=== PATIENT | female | born 1980 | race Caucasian/White ===

== ENCOUNTER 2017-03-04 14:47 | Emergency (ER) | payer SELFPAY, OTHER ==
[2017-03-04 15:22] LABS: URINE HCG POC HCG NEGATIVE (Negative)
[2017-03-04 16:17] LABS: BILIRUBIN,URINE NEGATIVE (NEG); GLUCOSE,URINE NEGATIVE (NEG); NITRITE,URINE NEGATIVE (NEG); PROTEIN,URINE NEGATIVE (NEG-TRACE)
[2017-03-04] MEDS: IBUPROFEN 600 MG TABLET. PO (16:49)
[2017-03-04 16:50] LABS: BACTERIA,URINE FEW /HPF (0-FEW); RBC,URINE 0 /HPF (0-2); SQUAMOUS EPITHELIAL CELL,UR MOD /LPF
[2017-03-08 16:12] LABS: CHLAMYDIA PROBE Negative (Negative)
== END 2017-03-04 18:46 | disposition home or self-care (01) ==
LOC: ER 14:47
DX: R10.2 Pelvic and perineal pain (principal); F17.200 Nicotine dependence, unspecified, uncomplicated; Z90.49 Acquired absence of other specified parts of digestive tract; Z98.51 Tubal ligation status
CPT/HCPCS: 76830; 76856; 81001; 81025; 87491; 87591; 99285-25; Q0111

== ENCOUNTER → 2018-08-10 | Outpatient (CLI) | payer BC ==
[2017-03-04 18:20] VITALS: BP 110/68
--- NOTE | 2018-08-10 14:39 | KCIC ---
EXAM: PELVIC ULTRASOUND. HISTORY: Pelvic pain. COMPARISON: 03/04/2017. FINDINGS: Sonographic evaluation of the pelvis was performed transabdominally and transvaginally. The uterus is anteverted and measures 9.8 x 4.8 x 5.6 cm. The endometrial stripe measures 10 mm. No masses are identified. There is no significant free fluid. A scar is noted. Multiple cysts are noted along the endocervical canal. The largest conglomerate measures 1.1 x 0.7 cm. The right ovary measures 4.2 x 2.5 x 2.4 cm. A complicated cyst or dominant follicle measures 2.6 x 2.2 x 2.1 cm. The left ovary measures 3.3 x 1.5 x 1.4 cm. There is normal Doppler flow bilaterally. There are no suspicious lesions. Prominent veins are noted in the left adnexa. IMPRESSION: 1. A complicated cyst or dominant follicle in the right ovary measures 2.6 cm and is most likely physiologic. Follow-up could be performed in 3 months only if there is persistent concern. 2. Prominent veins in the left adnexa are usually an incidental finding. Correlate clinically to exclude pelvic venous congestion syndrome. Electronically signed by: Shruthi Putnam MD (08/10/2018 2:35 PM) [facility]
--- NOTE | 2018-08-10 15:05 | KCIC ---
Bilateral digital screening mammograms with 3-D tomosynthesis: Reason for examination: Routine screening. New baseline. No previous examinations available for comparison. Bilateral mammograms in CC and oblique projections were obtained with 2-D imaging and 3-D tomosynthesis imaging on a Siemens Inspiration unit and reviewed on the workstation. Interpretation was made with the benefit of CAD. The skin and nipples show no abnormalities. No abnormal axillary lymph nodes are seen. The breast parenchyma shows scattered fatty and fibroglandular density. (Breast density: Category B.) There appears to be an area of architectural distortion at the 11:00 to 12:00 C position of the left breast. Further evaluation with coned compression views and ultrasound is recommended. There also appear to be small nodular parenchymal densities located at approximately the 1:00 A position in the left breast and in the 8:00 B position of the left breast. These are small and well-circumscribed and may represent cysts but recommend further evaluation with ultrasound. There are no other dominant masses, suspicious calcifications or architectural distortion. Impression: Architectural distortion at the 11:30-12:00 position posteriorly in the left breast. Recommend further evaluation with coned compression views in CC and lateral projections and with ultrasound. Small circumscribed nodules at the 1:00 A position and 8:00 B position which are subcentimeter in size and may represent cysts. Recommend further evaluation with ultrasound. BI-RADS Category 0: Incomplete: Need additional imaging evaluation. "Our facility is accredited by the [employer] Mammography Program." This patient's information has been entered into a reminder system for the patient to be notified with the results of her examination and a target date for the next mammogram. Electronically signed by: Ariadne Maya MD (08/10/2018 3:02 PM) [facility]
== END | disposition home or self-care (01) ==
LOC: KCIC US 11:57
PROVIDERS: ATTEND Nurse Practitioner Family
DX: Z12.31 Encounter for screening mammogram for malignant neoplasm of breast (principal); N63.24 Unspecified lump in the left breast, lower inner quadrant; R10.2 Pelvic and perineal pain
CPT/HCPCS: 76830; 76856; 77063; 77067

== ENCOUNTER → 2018-08-21 | Outpatient (CLI) | payer BC ==
[2017-03-04 18:20] VITALS: BP 110/68
--- NOTE | 2018-08-21 17:00 | KCIC ---
Left breast diagnostic digital mammograms: Reason for examination: Asymmetric parenchyma posteriorly and small nodules anteriorly in the left on screening mammogram. Comparison is made to mammographic exam dated 08/10/2018. Coned compression views were obtained in CC and lateral projections. With these additional views, there parenchymal asymmetry posterior superiorly appears represent superimposed tissues. No definite nodules are identified anteriorly on the additional views. IMPRESSION: No suspicious abnormalities with the additional views. Ultrasound to follow. BI-RADS Category 0: Incomplete: Need additional imaging evaluation. Left breast ultrasound: Ultrasound examination of the left breast was performed in the areas of mammographic concern and at the left axilla. There is some dense fibroglandular tissue at the 11:00 position corresponding with the area of asymmetry. No discrete cystic or solid nodules are seen. No abnormal appearing lymph nodes are seen in the axilla. IMPRESSION: No suspicious abnormality seen in the left breast sonographically. Recommend 6 month follow-up with mammograms. BI-RADS Category 3: Probably Benign. "Our facility is accredited by the [employer] Mammography Program." This patient's information has been entered into a reminder system for the patient to be notified with the results of her examination and a target date for the next mammogram. Electronically signed by: Ariadne Maya MD (08/21/2018 4:56 PM) [id number]
== END | disposition home or self-care (01) ==
LOC: KCIC MAMMO 12:52
PROVIDERS: ATTEND Nurse Practitioner Family
DX: N63.20 Unspecified lump in the left breast, unspecified quadrant (principal); N64.89 Other specified disorders of breast
CPT/HCPCS: 76641; 77065

== ENCOUNTER → 2018-10-06 | Outpatient (CLI) | payer BC ==
[2017-03-04 18:20] VITALS: BP 110/68
[~2018-10-06] VITALS: Ht 154.9 cm; Wt 65.1 kg
[~2018-10-06] MED LIST: HYDR-2761 PO
[2018-10-06 12:55] LABS: BASO # 0.1 x10^3/uL (0.0-0.2); BASO % 1 % (0-3); EOS # 0.2 x10^3/uL (0.0-0.7); EOS % 2 % (0-3); HEMATOCRIT 44.9 % (36.0-47.0); HEMOGLOBIN 15.4 g/dL (12.0-15.5); LYMPH # 2.9 x10^3/uL (1.0-4.8); LYMPH % 30 % (24-48); MEAN CORPUSCULAR HEMOGLOBIN 33 pg (25-35); MEAN CORPUSCULAR HGB CONC 34 g/dL (31-37); MEAN CORPUSCULAR VOLUME 95 fL (79-100); MONO # 0.6 x10^3/uL (0.0-1.1); MONO % 6 % (0-9); NEUT % 61 % (31-73); PLATELET COUNT 318 x10^3/uL (140-400); RED BLOOD COUNT 4.72 x10^6/uL (3.50-5.40); RED CELL DISTRIBUTION WIDTH 14.1 % (11.5-14.5); WHITE BLOOD COUNT 9.8 x10^3/uL (4.0-11.0)
[2018-10-06 12:58] LABS: BILIRUBIN,URINE NEGATIVE (NEG); CLARITY,URINE CLEAR; COLOR,URINE YELLOW; NITRITE,URINE NEGATIVE (NEG); PROTEIN,URINE NEGATIVE (NEG-TRACE); UROBILINOGEN,URINE 0.2 mg/dL (0.2 mg/dL)
[2018-10-06 13:15] LABS: ALBUMIN 3.7 g/dL (3.4-5.0); CALCIUM 8.4 mg/dL (8.5-10.1); CREATININE 0.7 mg/dL (0.6-1.0); GFR 94.2; POTASSIUM 3.4 mmol/L (3.5-5.1); TOTAL BILIRUBIN 0.4 mg/dL (0.2-1.0); TOTAL PROTEIN 7.4 g/dL (6.4-8.2)
[2018-10-06 13:16] LABS: BACTERIA,URINE FEW /HPF (0-FEW); RBC,URINE 0 /HPF (0-2); SQUAMOUS EPITHELIAL CELL,UR MOD /LPF; WBC,URINE 0 /HPF (0-4)
== END | disposition home or self-care (01) ==
LOC: SURGPAT 12:28
PROVIDERS: ATTEND Obstetrics & Gynecology
DX: Z01.818 Encounter for other preprocedural examination (principal)
CPT/HCPCS: 36415; 80053; 81001; 85025

== ENCOUNTER 2018-10-12 06:38 | Observation (INO) | payer BC ==
[~2018-10-12] VITALS: Ht 154.9 cm; Wt 64.9 kg
[2018-10-12] MEDS ORDERED: PROPOFOL 20 ML IV ONE (06:53)
[2018-10-12] MEDS ORDERED: DEXAMETHASONE SOD PHOS 4 MG/ML VIAL ONE (06:53)
[2018-10-12] MEDS ORDERED: ONDANSETRON PF 4 MG/2 ML VIAL. ONE (06:53)
[2018-10-12] MEDS ORDERED: MORPHINE SULFATE 2 MG/ML VIAL. IV PRN ×2 (07:00→11:00)
[2018-10-12] MEDS ORDERED: ONDANSETRON PF 4 MG/2 ML VIAL. IV PRN ×2 (07:00→11:00)
[2018-10-12] MEDS ORDERED: PROCHLORPERAZINE 10 MG/2 ML VIAL. IV PRN (07:00)
[2018-10-12] MEDS ORDERED: LIDOCAINE 1% PF 2 ML VIAL. ID PRN (07:00)
[2018-10-12] MEDS ORDERED: IV RINGERS,LACTATED 1000ML 1,000 ML IV SCH (07:00)
[2018-10-12] MEDS ORDERED: fentaNYL PF VIAL 100 MCG/2 ML VIAL IV PRN (07:00)
[2018-10-12] MEDS ORDERED: ESTROGENS, CONJ VAGINAL CREAM 30GM TUBE. ONE (07:23)
[2018-10-12] MEDS ORDERED: INDIGOTINDISULFONATE SODIUM 40 MG/5 ML AMPUL. ONE (07:24)
[2018-10-12] MEDS ORDERED: fentaNYL PF VIAL 100 MCG/2 ML VIAL ONE ×2 (08:28→10:56)
[2018-10-12] MEDS ORDERED: ROCURONIUM 50 MG/5 ML VIAL. ONE (08:28)
[2018-10-12] MEDS ORDERED: BUPIVACAINE-EPI 0.25%-1:200000 MPF 30 ML VIAL. INJ ONE (09:00)
[2018-10-12] MEDS ORDERED: MAGNESIUM HYDROXIDE 2,400 MG/30 ML ORAL.SUSP. PO PRN (11:00)
[2018-10-12] MEDS ORDERED: diphenhydrAMINE 50 MG/ML VIAL IV PRN (11:00)
[2018-10-12] MEDS ORDERED: SIMETHICONE 80 MG TAB.CHEW PO PRN (11:00)
[2018-10-12] MEDS ORDERED: HYDROcodone/APAP 5/325MG 1 TAB TABLET PO PRN (11:00)
[2018-10-12] MEDS ORDERED: LACTULOSE 20 GM/30 ML SOLUTION. PO PRN (11:00)
[2018-10-12] MEDS ORDERED: ZOLPIDEM 5 MG TABLET. PO PRN (11:00)
[2018-10-12] MEDS ORDERED: CALCIUM CARBONATE 500 MG TAB.CHEW PO PRN (11:00)
[2018-10-12] MEDS ORDERED: 0.9 % SODIUM CHLORIDE 10 ML DISP.SYRIN. IV PRN (11:00)
[2018-10-12] MEDS ORDERED: diphenhydrAMINE HCL 25 MG CAPSULE PO PRN (11:00)
[2018-10-12] MEDS ORDERED: NALOXONE 0.4 MG/ML VIAL. IV PRN (11:00)
[2018-10-12] MEDS ORDERED: MAG HYDROX/ALUMINUM HYD/SIMETH 30 ML ORAL.SUSP PO PRN (11:00)
[2018-10-12] MEDS: fentaNYL PF VIAL 100 MCG/2 ML VIAL IV PRN ×2 (11:02→11:24)
--- NOTE | 2018-10-12 11:09 | PDOC ---
BRIEF OPERATIVE NOTE Date: Oct 12, 2018 Pre-Op Diagnosis pelvic pain, menorrhagia, dysmenorrhea Post-Op Diagnosis same Procedure Performed LAVH/BSO Surgeon Dr. Nicole Scott Rotary Drill Operator Helper PREMA Serna Anesthesiologist Dr. Caban Anesthesia Type: General Blood Loss 50cc IV Fluid 600cc Urine Output 100cc clear via cook Specimens Obtained cervix, uterus, bilateral tubes and ovaries Findings mild omental adhesions to anteiror abdominal wall in front of umbilical port, mild bladder adhesions, enlarged left ovary, left sided bowel adhesions Complications none Operative Note [id number] NICOLE SCOTT MD Oct 12, 2018 11:09
[2018-10-12] MEDS ORDERED: HYDROmorphone 2 MG/ML VIAL ONE (11:16)
[2018-10-12] MEDS: KETOROLAC 30 MG/ML VIAL. IV PRN (11:19)
[2018-10-12] MEDS: HYDROmorphone 2 MG/ML VIAL IV PRN ×3 (11:25→11:54)
[2018-10-12] MEDS ORDERED: ESTRADIOL WEEKLY 0.1 MG PATCH. TD SCH (11:30)
--- NOTE | 2018-10-12 12:05 | OP ---
DATE OF SURGERY: 10/12/2018 PREOPERATIVE DIAGNOSES: Pelvic pain, dysmenorrhea and menorrhagia. POSTOPERATIVE DIAGNOSES: Pelvic pain, dysmenorrhea and menorrhagia. PROCEDURES: Laparoscopic-assisted vaginal hysterectomy, bilateral salpingo-oophorectomy. SURGEON: Marah Scott MD MAP EDITOR: ANGIE Sterling ANESTHESIOLOGIST: Dr. Groves. ANESTHESIA: General. ESTIMATED BLOOD LOSS: 50 mL. URINE OUTPUT: 100 mL clear via Calvillo catheter. INTRAVENOUS FLUIDS: 600 mL of crystalloid. SPECIMEN REMOVED: Cervix, uterus, bilateral tubes and ovaries. FINDINGS: Mild omental adhesions to the anterior abdominal wall in front of the umbilical port. Mild bladder adhesions, probably from prior section and large left ovary and left-sided bowel adhesions. Normal right tube and ovary and normal appearing uterus. COMPLICATIONS: None. DESCRIPTION OF PROCEDURE: This patient was taken to the operating room where general anesthesia was placed. The patient was placed in the dorsal lithotomy position in [facility]. The patient's abdomen and vagina were prepped and draped in the normal sterile fashion and a Calvillo catheter had been inserted under sterile technique. Upon my arrival, a timeout was performed. Once everyone agreed, a bivalve speculum was placed in the patient's vagina. A single-tooth tenaculum was used to grasp the anterior lip of the cervix. A 10 mL of 0.25% Marcaine with epinephrine was used to circumferentially inject around the cervix for both hemodissection and hemostatic purposes later. Once this was done, the Valtchev uterine manipulator was placed through the endocervical os, locked on the single tooth tenaculum and the bivalve speculum was then removed. Top gloves were discarded and changed. Attention was then turned to the abdomen where an infraumbilical skin incision was made with the scalpel over an existing scar. A curved Fawn was used to dissect through the subcuticular layer to the fascia. The 5 mm Visiport was used to directly enter the abdominal cavity. Opening patient pressure was 4 mmHg. Carbon dioxide gas was used to then appropriately insufflate the abdominal cavity to maintain a pressure of 15 mmHg. Upon entry, it appeared to be clear; however, I could see omentum right in front of me. I was able to get a left lower quadrant port in, making sure it was clear on the inside, transilluminating the abdominal wall, finding an area clear of any vasculature, making an incision and putting it under direct visualization using 4-5 mL of air to insufflate that cuff. I moved the camera to the lateral port to check the umbilical port. It was indeed clear, but there was a small omental adhesion you could see in front of it, so that is what I was seeing. That was able to be taken down under direct visualization with the LigaSure easily, cauterizing and cutting it and releasing it. It was just a piece of omentum right in front of the port, which cleared visualization and then the right lower quadrant port was placed as well, finding an area clear on the inside transilluminating the abdominal wall, finding an area clear of any vasculature, making a small incision and placing the port in under direct visualization. Once that was done, 4-5 mL of air was used to insufflate the cuff and the camera was moved back to the midline and the procedure was started. I did take down some of the bowel adhesions as well on the left side to get the IP ligament good, not a lot but a little, elevating that finding the ureter, coursing low in the pelvis, staying high on the IP ligament, cauterizing and cutting it with the LigaSure, going over under the tube and ovary, and then crossing the left round ligament as well. This was done on the right side, elevating the right tube and ovary, finding the ureter coursing low, staying high on the IP taking the tube and ovary per patient request, crossing the right round ligament. The bladder flap was then created sharply, taking down adhesions first and then pushing the uterus in cephalad for some tension, elevating the bladder and using the monopolar hook as a knife to cut across and peeling it down good. Once that was peel down, the uterine vessels were obtained on both sides and then going down through the cardinal and broad ligaments to the level of the uterosacrals. Once this was done and the uterus was completely free and blanching and mobile, everything was removed from the abdomen and attention was turned vaginally. The single tooth and Valtchev were removed. A weighted speculum was placed in the patient's vagina. Thyroid Leif clamps were placed on the anterior and posterior lips of the cervix respectively. A scalpel was used to make a circumferential incision in the cervix. An open Ray-Clary 4 x 4 was used to gently push up the anterior bladder peritoneum and the anterior cul-de-sac was digitally and bluntly entered. The 4 x 4 was removed and the curved Wellesley was placed in the anterior cul-de-sac. The cervix was elevated and the posterior cul-de-sac was sharply entered with curved Viramontes scissors. A #0 Vicryl stitch was used to secure the posterior peritoneum here to the vaginal cuff. It was tied, tagged with a curved Fawn clamp and the needle was cut and passed off. The short weighted speculum was removed and replaced with the long weighted Arturo speculum in the posterior cul-de-sac. Curved Doe clamps x 2 were placed on the patient's left uterosacral ligament where they were doubly clamped with curved Heaneys, cut with Viramontes scissors and suture ligated x 2 with 0 Vicryl, taking the second one through the vaginal cuff securing uterosacral ligament to the vaginal cuff, tying it, tagging it with a straight Fawn clamp and cutting the needle off. This was done exactly the same on the patient's right side. Double clamping the uterosacrals with curved Doe's, cutting with Viramontes scissors, suture ligating x 2 with 0 Vicryl, taking the second one through the vaginal cuff, tagging it with a straight Fawn clamp and cutting and passing the needle off. The remaining pedicle on both sides were delineated with the curved mixture and the vaginal LigaSure was used to cauterize and cut these on both sides. Once this was done, the cervix, uterus, bilateral tubes and ovaries were delivered in total and passed off for permanent pathology. A sponge stick was used to examine the pedicles. Once hemostasis was assured, some clots were cleared from the posterior cul-de-sac, but there was no active bleeding from any of the pedicles. A long Allis was used to grasp the anterior bladder peritoneum and it was examined as well. The long Arturo speculum was removed and replaced with the short weighted vaginal speculum. A 2-0 Vicryl was taken through the anterior bladder peritoneum, left uterosacral ligament, posterior peritoneum and right uterosacral ligament, thus closing the peritoneum in a pursestring like fashion. Once this was done, the right and left uterosacral tags were clipped. A full length 2-0 Vicryl was used to close the cuff in an anterior to posterior running locked fashion and the posterior cuff tag was tied to it and cut. The vagina was examined with a sponge stick and the vaginal cuff was completely hemostatic, so all instruments were removed. Sponge, lap and needle counts had been correct x 2 by OR personnel before going above. At this point, all instruments were removed vaginally and attention was turned back above for a second look. The patient was placed back in Trendelenburg. Gas was reinsufflated. Copious irrigation revealed hemostasis. Tisseel was placed over the pedicles with excellent results. The right and left pericolic gutters were clear. The appendix was normal. The edge of the liver was normal. At this point, the right and left lower quadrant ports were deflated on the cuff and they were removed under direct visualization. They were hemostatic. I continued to watch the cuff while the gas went down and it remained hemostatic. So, the cuff was deflated on the umbilical port. It was removed as well. All three port sites were closed with 4-0 nylon at the skin and injected with 10 mL of local. The patient was awakened from anesthesia, extubated and brought to recovery room in stable condition. MARAH SCOTT MD DR: CHRISTY/andres JOB#: [id number] / [id number]
[2018-10-12] MEDS: oxyCODONE/APAP 5/325 1 TAB TABLET PO PRN ×3 (12:50→21:03)
[2018-10-12 13:00] VITALS: BP 105/54
[2018-10-12 13:30] VITALS: BP 97/63
[2018-10-12 14:00] VITALS: BP 100/49
[2018-10-12 14:30] VITALS: BP 101/51
[2018-10-12 17:00] VITALS: BP 99/59
[2018-10-12 21:07] VITALS: BP 107/59
[2018-10-13] MEDS: oxyCODONE/APAP 5/325 1 TAB TABLET PO PRN ×2 (02:54→07:55)
[2018-10-13 02:55] VITALS: BP 110/60
[2018-10-13] MEDS: KETOROLAC 30 MG/ML VIAL. IV PRN (07:54)
[2018-10-13] MEDS: BISACODYL 10 MG SUPP.RECT. PR PRN ×2 (07:56→08:01)
[2018-10-13 08:21] LABS: CREATININE 0.7 mg/dL (0.6-1.0); GFR 94.2; POTASSIUM 3.4 mmol/L (3.5-5.1)
--- NOTE | 2018-10-13 08:44 | PDOC ---
SURGICAL PROGRESS NOTE Subjective Doing well. Ambulating well, voiding without catheter, scant spotting only with wiping, tolerating pO pain meds. Wanting to go home today Vital Signs Vital Signs Date Time Temp Pulse Resp B/P (MAP) Pulse Ox O2 Delivery O2 Flow Rate FiO2 10/13/18 07:56 97 8.0 10/13/18 02:55 98.0 74 110/60 (77) 98.0 10/13/18 02:54 18 10/12/18 21:07 Room Air I&O Intake and Output 10/13/18 06:59 Intake Total 3360 ml Output Total 210 ml Balance 3150 ml Intake Oral 1960 ml IV Total 1400 ml Output Urine Total 160 ml Estimated Blood Loss 50 ml # Voids 6 PATIENT HAS A PAZ: No General: Alert, Oriented X3, Cooperative, No acute distress HEENT: Atraumatic Heart: Regular rate Abdomen: Soft, No tenderness, No masses, Other (all port sites c/d/i) Extremities: No clubbing, No cyanosis, No edema, No tenderness/swelling Skin: No rashes, No breakdown, No significant lesion Neuro: Normal gait, Normal speech Psych/Mental Status: Mental status NL, Mood NL Labs Laboratory Tests Test 10/12/18 06:51 10/13/18 06:25 Bedside Urine HCG, Qualitative Hcg negative (Negative) Hematocrit 38.1 % (36.0-47.0) Sodium Level 141 mmol/L (136-145) Potassium Level 3.4 mmol/L (3.5-5.1) Chloride Level 107 mmol/L (98-107) Carbon Dioxide Level 24 mmol/L (21-32) Anion Gap 10 (6-14) Blood Urea Nitrogen 8 mg/dL (7-20) Creatinine 0.7 mg/dL (0.6-1.0) Estimated GFR (Cockcroft-Gault) 94.2 Glucose Level 98 mg/dL (70-99) Calcium Level 8.0 mg/dL (8.5-10.1) Laboratory Tests Test 10/13/18 06:25 Hematocrit 38.1 % (36.0-47.0) Sodium Level 141 mmol/L (136-145) Potassium Level 3.4 mmol/L (3.5-5.1) Chloride Level 107 mmol/L (98-107) Carbon Dioxide Level 24 mmol/L (21-32) Anion Gap 10 (6-14) Blood Urea Nitrogen 8 mg/dL (7-20) Creatinine 0.7 mg/dL (0.6-1.0) Estimated GFR (Cockcroft-Gault) 94.2 Glucose Level 98 mg/dL (70-99) Calcium Level 8.0 mg/dL (8.5-10.1) Cardiovascular: No pertinent hx GI: No pertinent hx Heme/Onc: No pertinent hx Rheumatologic: No pertinent hx Infectious disease: No pertinent hx ENT: No pertinent hx Assessment/Plan POD#1 s/p LAVH/BSO Routine PO care d/c to home later today NPV x 6 weeks Light/limited activity x 2 weeks keep scheduled follow up appt with me in one week call or return sooner if has any questions or concerns not limited to but including pain unrelieved with pain meds, increased or unexplained vaginal bleeding or T>100.4 ok for OTC ibuprofen as needed already has oxycodone at home MARAH ODONNELL MD Oct 13, 2018 08:44
--- NOTE | 2018-10-13 08:50 | PDOC3 ---
Discharge Summary Visit Information Date of Admission: Oct 12, 2018 Date of Discharge: Oct 13, 2018 Brief Hospital Course Allergies Allergies Coded Allergies Type Severity Reaction Last Updated Verified No Known Drug Allergies 03/10/15 No Vital Signs Vital Signs Date Time Temp Pulse Resp B/P (MAP) Pulse Ox O2 Delivery O2 Flow Rate FiO2 10/13/18 07:56 97 8.0 10/13/18 02:55 98.0 74 110/60 (77) 98.0 10/13/18 02:54 18 10/12/18 21:07 Room Air Lab Results Laboratory Tests Test 10/12/18 06:51 10/13/18 06:25 Bedside Urine HCG, Qualitative Hcg negative (Negative) Hematocrit 38.1 % (36.0-47.0) Sodium Level 141 mmol/L (136-145) Potassium Level 3.4 mmol/L (3.5-5.1) Chloride Level 107 mmol/L (98-107) Carbon Dioxide Level 24 mmol/L (21-32) Anion Gap 10 (6-14) Blood Urea Nitrogen 8 mg/dL (7-20) Creatinine 0.7 mg/dL (0.6-1.0) Estimated GFR (Cockcroft-Gault) 94.2 Glucose Level 98 mg/dL (70-99) Calcium Level 8.0 mg/dL (8.5-10.1) Laboratory Tests Test 10/13/18 06:25 Hematocrit 38.1 % (36.0-47.0) Sodium Level 141 mmol/L (136-145) Potassium Level 3.4 mmol/L (3.5-5.1) Chloride Level 107 mmol/L (98-107) Carbon Dioxide Level 24 mmol/L (21-32) Anion Gap 10 (6-14) Blood Urea Nitrogen 8 mg/dL (7-20) Creatinine 0.7 mg/dL (0.6-1.0) Estimated GFR (Cockcroft-Gault) 94.2 Glucose Level 98 mg/dL (70-99) Calcium Level 8.0 mg/dL (8.5-10.1) Brief Hospital Course Ms. Arroyo is a 38 old female who presented with pelvic pain, menorrhagia, dysmenorrhea. She underwent and LAVH/BSO yesterday without complications. She has had an unremarkable postoperative course with AFVSS, ambulating well, tolerating po, scant vag spotting with wiping only. She will be discharged to home later today Discharge Information Condition at Discharge: Stable Follow Up: Weeks Disposition/Orders: D/C to Home Scheduled Info (No Known Medications Prior To Admisstion) Each, 1 EACH MC DAILY for NONE, (Reported) Entered as Reported by: FIORDALIZA IVAN on 10/06/18 5001 Last Action: HELD on 10/12/18837 by MARAH ODONNELL Patient Instructions Patient Instructions POD#1 s/p LAVH/BSO Routine PO care d/c to home later today NPV x 6 weeks Light/limited activity x 2 weeks keep scheduled follow up appt with me in one week call or return sooner if has any questions or concerns not limited to but including pain unrelieved with pain meds, increased or unexplained vaginal bleeding or T>100.4 ok for OTC ibuprofen as needed already has oxycodone at home MARAH ODONNELL MD Oct 13, 2018 08:49
[2018-10-13 09:14] VITALS: BP 105/66
[2018-10-13] MEDS ORDERED: HYDR-2761 PO (09:17)
--- NOTE | 2018-10-16 08:07 | PATHOLOGY ---
[facility] Accession Number: [id number] . 01 Material submitted: . uterus - CERVIX, UTERUS, BILATERAL FALLOPIAN TUBES AND OVARIES . 01 Clinical history: . Female pelvic pain, menorrhagia, dysmenorrhea. . 02 Diagnosis: Uterus and attached bilateral fallopian tubes and ovaries, laparoscopic-assisted vaginal hysterectomy with bilateral salpingo-oophorectomy: - Adenomyosis, uterine corpus, subbasilar region, with mild myometrial hypertrophy (uterine weight 112 grams). - Mild chronic cervicitis with focal squamous metaplasia. - Proliferative endometrium. - Congestion and cystic Walthard rests of bilateral fallopian tubes. - Cystic follicles of bilateral ovaries. (CHAPISM:giovany; 10/13/2018) MBR/10/16/2018 . 02 Comment: There is no atypia or evidence of malignancy. (CHAPISM:giovany; 10/13/2018) . 02 Electronically signed: . Miky Wood MD, Pathologist NPI- [id number] . 01 Gross description: . Received in formalin labeled "Marycruz Arroyo, cervix, uterus, bilateral fallopian tubes and ovaries" is a hysterectomy specimen with attached fallopian tubes and ovaries. The uterus weighs 112 g and measures 9.8 cm from fundus to cervix, 5.5 cm from cornu to cornu, and 4.8 cm from anterior to posterior. The serosa is pink-shanks and smooth. The ectocervix is pink-shanks and glistening and displays a slitlike cervical os measuring 1.7 cm in length. The specimen is opened to reveal a 4.5 x 2.8 cm endometrial cavity and a 2.5 x 0.8 cm endocervical canal. Upon sectioning, the average endometrial thickness is 0.3 cm and the average myometrial thickness is 1.8 cm. No leiomyomata are present. The right fallopian tube measures 4.6 cm in length and 0.9 cm in diameter. The left fallopian tube measures 5.2 cm in length and 0.9 cm in diameter. Both fallopian tubes are fimbriated and displays multiple paratubal cysts ranging from 0.1-0.3 cm. Upon sectioning, both fallopian tubes display pinpoint lumens. The right ovary weighs 9 g and measures 4.1 x 2.8 x 1.7 cm. The left ovary weighs 10 g and measures 4.6 x 2.7 x 1.7 cm. Both ovaries are shanks-white and cerebriform and sectioned to reveal multiple thin-walled simple cysts ranging from 0.5-1.0 cm in greatest dimension. No papillary excrescences are identified. Multiple corpora lutea are also identified. Campus Safety Officer sections of the specimen are submitted as follows: A1 12:00 cervix A2 6:00 cervix A3 anterior endomyometrium A4 posterior endomyometrium A5 claim representative right fallopian tube A6 claim representative left fallopian tube A7 claim representative right ovary A8 claim representative left ovary ([facility]; 10/12/2018) SYC/SYC . 02 Pathologist provided ICD-10: N80.0, N72, N92.0, R10.2 . 02 CPT . 272914 Specimen Comment: A courtesy copy of this report has been sent to Specimen Comment: [phone], . Specimen Comment: Report sent to / DR GEORGES Specimen Comment: A duplicate report has been generated due to demographic updates. Performed at: 01 [facility] [address] [id number] MD Leo Nina MD Phone: [phone] Performed at: 02 [facility] [address] [place], [place] [id number] MD Miky Wood MD Phone: [phone]
== END 2018-10-13 09:42 | disposition home or self-care (01) ==
LOC: SURG 06:38 → 3 NORTH 10:54
PROVIDERS: ADMIT Obstetrics & Gynecology; ATTEND Obstetrics & Gynecology
DX: N92.0 Excessive and frequent menstruation with regular cycle (principal); N94.6 Dysmenorrhea, unspecified; K66.0 Peritoneal adhesions (postprocedural) (postinfection); Z98.891 History of uterine scar from previous surgery
CPT/HCPCS: 36415; 58550; 80048; 81025; 85014; 86850; 86900; 86901; 88307; 96374; A7015; G0378; G0379; J0696; J1100; J1170; J1885; J2405; J2704; J3010; J7030

== ENCOUNTER → 2020-05-02 | Outpatient (CLI) | payer BC ==
--- NOTE | 2020-05-02 17:27 | KCIC ---
XR LUMBAR SPINE 4+V History: Reason: LUMBAR PAIN WITH RADIATION / Spl. Instructions: New onset of RLE pain and numbness a nd LBP / History: Comparison: None. Technique: Lateral, spot, bilateral oblique, and AP views of the lumbar spine, 5 total images. Findings: There 5 nonrib-bearing lumbar-type vertebral bodies. Normal alignment without spondylolisth esis or spondylolysis. No acute osseous abnormality. Developmental versus old posttraumatic unfused l eft lateral process at L2. The disc spaces are preserved. Surgical clips project in the right upper q uadrant. The sacroiliac joints are unremarkable. IMPRESSION: 1. No significant lumbar spine pathology. Electronically signed by: Deuce Szymanski MD (05/02/2020 5:25 PM) [facility]
== END ==
LOC: KCIC 11:38
PROVIDERS: ATTEND Nurse Practitioner Family
DX: M54.5 Low back pain (principal)
CPT/HCPCS: 72110

== ENCOUNTER → 2020-05-13 | Outpatient (CLI) | payer BC ==
--- NOTE | 2020-05-13 10:47 | KCIC ---
EXAM: Right thigh sonogram. HISTORY: Palpable lump. TECHNIQUE: Sonographic imaging of the right thigh at the site of palpable concern was performed. COMPARISON: None. FINDINGS: There is a circumscribed nonvascular solid hypoechoic nodule within the subcutaneous fat of the right thigh measuring 1.5 x 1.2 x 0.9 cm. This corresponds with the site of palpable concern. Th e sonographic appearance favors a lipoma. IMPRESSION: 1.5 cm suspected lipoma within the subcutaneous soft tissues of the right thigh at the si te of palpable concern. Continued clinical follow-up of palpable abnormalities is recommended. Sonogr aphic follow-up can be performed if there is a change in physical exam findings or continuing concern . Electronically signed by: Nancy Oakley MD (05/13/2020 10:44 AM) [id number]
== END ==
LOC: KCIC US 09:43
PROVIDERS: ATTEND Nurse Practitioner Family
DX: M79.89 Other specified soft tissue disorders (principal); M79.651 Pain in right thigh
CPT/HCPCS: 76881

== ENCOUNTER 2020-10-10 08:14 | Emergency (ER) | payer BC ==
[~2020-10-10] VITALS: Ht 154.9 cm; Wt 77.2 kg
--- NOTE | 2020-10-10 09:28 | ED.ADGEN ---
Past Medical History Past Medical History: No Pertinent History Past Surgical History: Cholecystectomy, , Hysterectomy, Tubal ligation, Other Additional Past Surgical Histo: lump removed from Left breast Smoking Status: Current Every Day Smoker Alcohol Use: Occasionally Drug Use: None General Adult EDM: Chief Complaint: SHORTNESS OF BREATH HPI: HPI: Patient is 40-year-old female presents to the emergency room complaining of shortness of breath. Patient was diagnosed with Covid 2 weeks ago. She states that at that time she had loss of taste, loss of smell, shortness of breath. She states that her Covid test became negative a couple of days ago. She states that she continues to have shortness of breath and a chest tightness. This does not feel like it has gotten any better. She also has a mild cough. She is able to walk without significant fatigue or shortness of breath. Review of Systems: Review of Systems: Complete ROS is negative unless otherwise documented in HPI Allergies: Allergies: Allergies Coded Allergies Type Severity Reaction Last Updated Verified No Known Drug Allergies 03/10/15 No Physical Exam: PE: General: Awake, alert, NAD. Well Nourished, well hydrated. Cooperative HEENT: Atraumatic, EOMI, PERRL, airway patent, moist oral mucosa Neck: Supple, trachea midline Respiratory: CTA bilaterally, normal effort, no wheezing/crackles CV: RRR, no murmur, cap refill <2 GI: Soft, nondistended, nontender, no masses MSK: No obvious deformities Skin: Warm, dry, intact Neuro: A&O x3, speech NL, sensory and motor grossly intact, no focal deficits Psych: Normal affect, normal mood, not suicidal or homicidal Current Patient Data: Vital Signs: Vital Signs Date Time Temp Pulse Resp B/P (MAP) Pulse Ox O2 Delivery O2 Flow Rate FiO2 10/10/20 08:33 98.3 81 17 115/65 (79) 96 Room Air 98.3 EKG: EKG: [] Heart Score: C/O Chest Pain: N/A Risk Factors: Risk Factors: DM, Current or recent (<one month) smoker, HTN, HLP, family history of CAD, obesity. Risk Scores: Score 0 - 3: 2.5% MACE over next 6 weeks - Discharge Home Score 4 - 6: 20.3% MACE over next 6 weeks - Admit for Clinical Observation Score 7 - 10: 72.7% MACE over next 6 weeks - Early Invasive Strategies Radiology/Procedures: Radiology/Procedures: [] Course & Med Decision Making: Course & Med Decision Making Pertinent Labs and Imaging studies reviewed. (See chart for details) Patient is a 40-year-old female presents to the emergency room 2 weeks after being diagnosed with Covid. Patient has continued shortness of breath and chest tightness. This is likely related to her COVID-19. There have been multiple cases of people having symptoms for several weeks and up to several months after their initial diagnosis. I have discussed this with the patient. She does not appear to have any signs or symptoms of a pulmonary embolism. Heart rate and pulse ox are normal at this time. X-ray will be done to rule out secondary pneumonia. Chest x-ray is normal. Patient's test results and vitals while in the ED were fully reviewed and discussed with the patient. Patient is stable and at this time does not need admission to the hospital. We have discussed strict return precautions and the importance of following up with their Primary Care Physician. Patient stated understanding and was given an opportunity to ask any questions. Patient is in agreement with plan. Roddy Disclaimer: Dragdeanne Disclaimer: This electronic medical record was generated, in whole or in part, using a voice recognition dictation system. Departure Departure Impression: Primary Impression: Post-COVID chronic dyspnea Disposition: HOME / SELF CARE / HOMELESS Condition: STABLE Referrals: KAVIN GEORGES APRN (PCP) Patient Instructions: Shortness of Breath GONZALO MONDRAGON MD Oct 10, 2020 09:28
--- NOTE | 2020-10-10 09:35 | RAD ---
EXAM: Chest, single view. HISTORY: Shortness of breath. COMPARISON: None. FINDINGS: A frontal view of the chest is obtained. There is no infiltrate, pleural effusion or pneumo thorax. The cardiac silhouette is normal in size for portable technique. There is a calcified granulo ma within the left mid thorax. IMPRESSION: No acute pulmonary finding. Electronically signed by: Nancy Oakley MD (10/10/2020 9:33 AM) [id number]
[2020-10-10 09:46] VITALS: BP 108/71
== END 2020-10-10 10:07 | disposition home or self-care (01) ==
LOC: ER 08:14
DX: R06.09 Other forms of dyspnea (principal); R07.89 Other chest pain; R43.9 Unspecified disturbances of smell and taste; F17.200 Nicotine dependence, unspecified, uncomplicated; Z86.16 Personal history of COVID-19
CPT/HCPCS: 71045; 99283

== ENCOUNTER 2020-12-15 10:15 | Emergency (ER) | payer BC ==
[~2020-12-15] VITALS: Ht 157.5 cm; Wt 76.4 kg
[2020-12-15 11:00] VITALS: BP 123/78
[2020-12-15] MEDS ORDERED: IBUPROFEN 200 MG TABLET. PO ONE (11:30)
[2020-12-15] MEDS ORDERED: DEXAMETHASONE 4 MG TABLET PO ONE (11:30)
--- NOTE | 2020-12-15 11:47 | PHYS DOC ---
Past Medical History Past Medical History: No Pertinent History (POLA BUTCHER NON PROFIT DIRECTOR) Past Surgical History: Cholecystectomy, , Hysterectomy, Tubal ligation, Other Additional Past Surgical Histo: lump removed from Left breast (POLA BUTCHER NON PROFIT DIRECTOR) Smoking Status: Current Every Day Smoker Alcohol Use: Occasionally Drug Use: None (POLA BUTCHER NON PROFIT DIRECTOR) General Adult EDM: Chief Complaint: SORE THROAT HPI: HPI: Patient is a 40 year old female who presents with 24 hours of sore throat mainly on the right side. She denies nasal congestion, cough, fever, body aches, nausea, vomiting, diarrhea, headache, dizziness, shortness of breath, chest pain. She has not taken anything for her symptoms. Patient has a history of cholecystectomy, smoker, hysterectomy, , tubal ligation. Rates her pain 8 out of 10. (POLA BUTCHER NON PROFIT DIRECTOR) Review of Systems: Review of Systems: Constitutional: Denies fever or chills. [] Eyes: Denies change in visual acuity. [] HENT: Denies nasal congestion or +sore throat. [] Respiratory: Denies cough or shortness of breath. [] Cardiovascular: Denies chest pain or edema. [] GI: Denies abdominal pain, nausea, vomiting, bloody stools or diarrhea. [] : Denies dysuria. [] Musculoskeletal: Denies back pain or joint pain. [] Integument: Denies rash. [] Neurologic: Denies headache, focal weakness or sensory changes. [] Endocrine: Denies polyuria or polydipsia. [] Lymphatic: Denies swollen glands. [] Psychiatric: Denies depression or anxiety. [] (POLA BUTCHER NON PROFIT DIRECTOR) Heart Score: C/O Chest Pain: No (POLA BUTCHER NON PROFIT DIRECTOR) Current Medications: Current Medications Medications (Trade) Dose Ordered Sig/Blanca Start Time Stop Time Status Last Admin Dose Admin Dexamethasone (Decadron) 10 mg 1X ONCE 12/15/20 11:30 12/15/20 11:31 DC Ibuprofen (Motrin) 600 mg 1X ONCE 12/15/20 11:30 12/15/20 11:31 DC (POLA BUTCHER NON PROFIT DIRECTOR) Allergies: Allergies: Allergies Coded Allergies Type Severity Reaction Last Updated Verified No Known Drug Allergies 03/10/15 No (POLA BUTCHER APRN) Physical Exam: PE: Constitutional: Well developed, well nourished, no acute distress, non-toxic appearance. [] HENT: Normocephalic, atraumatic, bilateral external ears normal, oropharynx moist, no oral exudates, nose normal. Postnasal drip [] Eyes: PERRLA, EOMI, conjunctiva normal, no discharge. [] Neck: Normal range of motion, no tenderness, supple, no stridor. [] Cardiovascular:Heart rate regular rhythm, no murmur [] Lungs & Thorax: Bilateral breath sounds clear to auscultation [] Abdomen: Bowel sounds normal, soft, no tenderness, no masses, no pulsatile masses. [] Skin: Warm, dry, no erythema, no rash. [] Back: No tenderness, no CVA tenderness. [] Extremities: No tenderness, no cyanosis, no clubbing, ROM intact, no edema. [] Neurologic: Alert and oriented X 3, normal motor function, normal sensory function, no focal deficits noted. [] Psychologic: Affect normal, judgement normal, mood normal. [] (POLA BUTCHER APRN) Current Patient Data: Vital Signs: Vital Signs Date Time Temp Pulse Resp B/P (MAP) Pulse Ox O2 Delivery O2 Flow Rate FiO2 12/15/20 11:00 97.8 73 16 123/78 (93) 99 Room Air 97.8 (POLA BUTCHER APRN) EKG: EKG: [] (POLA BUTCHER APRN) Radiology/Procedures: Radiology/Procedures: [] (POLA BUTCHER APRN) Course & Med Decision Making: Course & Med Decision Making Pertinent Labs and Imaging studies reviewed. (See chart for details) See HPI. Alert and oriented x4. Ambulatory steady gait. Speaks in full clear sentences. No trismus. Uvula midline. Afebrile. Vital signs within normal l imits. Skin pink warm and dry. Lungs are clear to auscultation all lobes. Throat is pink without exudates or swelling. There is postnasal drip. Patient is given a dose of dexamethasone and ibuprofen. Rapid strep is negative. She will be sent home to follow-up primary care physician. [] (POLA BTUCHER APRN) Course & Med Decision Making I have participated in the care of this patient and I have reviewed and agree with all pertinent clinical information above including history, exam, and recommendations. (ROSELYN HOWARD DO) Dragon Disclaimer: Dragdeanne Disclaimer: This electronic medical record was generated, in whole or in part, using a voice recognition dictation system. (POLA BUTCHER APRN) Departure Departure Impression: Primary Impression: Sore throat Disposition: HOME / SELF CARE / HOMELESS Condition: STABLE Referrals: KAVIN GEORGES APRN (PCP) Patient Instructions: Sore Throat Additional Instructions: Follow-up with primary care provider. Drink plenty of fluids. Take ibuprofen or Tylenol for your pain. If you begin having shortness of breath, high fever and cannot keep down any fluids, cannot speak clearly or swallow fluid come back to the emergency room. POLA BUTCHER APRN Dec 15, 2020 11:47 ROSELYN HOWARD DO Dec 15, 2020 11:54
== END 2020-12-15 11:55 | disposition home or self-care (01) ==
LOC: ER 10:15
DX: J02.9 Acute pharyngitis, unspecified (principal); F17.200 Nicotine dependence, unspecified, uncomplicated
CPT/HCPCS: 87070; 87880; 99283